=== PATIENT | male | born 1990 | race Two or more races ===

== ENCOUNTER → 2018-01-23 | Emergency (ER) | payer OTHER ==
[~2018-01-23] VITALS: Ht 167.6 cm; Wt 56.7 kg
[~2018-01-23] MED LIST: AIRBORNE EFFER1 EACH PO; KETO10TA2 PO
== END | disposition home or self-care (01) ==
LOC: ER 22:45
DX: B34.9 Viral infection, unspecified (principal)

== ENCOUNTER 2022-08-03 09:33 | Outpatient (CLI) | payer OTHER | END 2022-08-03 09:34 | disposition home or self-care (01) | LOC: LAB 09:33 | PROVIDERS: ATTEND Obstetrics & Gynecology | DX: Z20.828 Contact with and (suspected) exposure to other viral communicable diseases (principal); Z20.818 Contact with and (suspected) exposure to other bacterial communicable diseases ==

== ENCOUNTER 2022-12-06 15:15 | Emergency (ER) | payer OTHER ==
[~2022-12-06] VITALS: Ht 165.1 cm; Wt 59.9 kg
== END 2022-12-06 19:23 | disposition home or self-care (01) ==
LOC: ER 15:15
DX: M54.50 Low back pain, unspecified (principal)